=== PATIENT | male | born 1965 | race Caucasian/White ===

== ENCOUNTER 2016-07-31 13:10 | Day surgery (SDC) | payer BC, OTHER ==
[2016-07-30 14:51] VITALS: BMI 37.6
[2016-07-31] VITALS (12 sets, daily range): BP systolic 107–126; BP diastolic 60–81; PULSE 65–81; RESP 18; Ht 185.4 cm; Wt 130.0 kg
[~2016-07-31] VITALS: Ht 185.4 cm; Wt 130.0 kg
[2016-07-31] MEDS ORDERED: CEFAZOLIN 2 GM/50 ML (PMX) 50 ML IVPB ONE (13:30)
[2016-07-31] MEDS ORDERED: SOD CHLORIDE 0.9% 1,000 ML IV SCH (13:30)
[2016-07-31 14:40] LABS: BASOPHILS % 0.5 % (0.0-2.0); EOSINOPHILS # 0.1 10^3/ul (0.0-0.5); HEMATOCRIT 44.6 % (42.0-52.0); LYMPHOCYTES # 1.6 10^3/ul (0.8-2.9); LYMPHOCYTES % 32.7 % (15.0-51.0); MEAN CORPUSCULAR HEMOGLOBIN 29.6 pg (29.0-33.0); MEAN CORPUSCULAR HGB CONC 33.7 g/dl (32.0-37.0); MEAN PLATELET VOLUME 7.8 fl (7.4-10.4); MONOCYTE # 0.5 10^3/ul (0.3-0.9); MONOCYTES % 10.4 % (0.0-11.0); NEUTROPHIL # 2.6 10^3/ul (1.6-7.5); NEUTROPHILS % 53.4 % (39.0-77.0); PLATELET COUNT 209 10^3/UL (140-440); RED BLOOD COUNT 5.07 10^6/ul (4.70-6.10); RED CELL DISTRIBUTION WIDTH 13.1 % (11.5-14.5); UNCORRECTED WBC 4.8 10^3/ul (4.8-10.8); WHITE BLOOD COUNT 4.8 10^3/ul (4.8-10.8)
[2016-07-31 14:45] LABS: CONDITION 1
[2016-07-31 14:50] LABS: INR 0.93; PROTIME 12.5 Sec (12.2-14.2)
[2016-07-31 14:54] LABS: CALCIUM 9.2 mg/dl (8.4-10.2); CREATININE 0.8 mg/dl (0.61-1.24)
[2016-07-31] MEDS ORDERED: MIDAZOLAM 1 MG/ML 2 ML INJ ONE (16:17)
[2016-07-31] MEDS ORDERED: FENTAnyl 50 MCG/ML VIAL ONE (16:17)
[2016-07-31] MEDS ORDERED: CEFAZOLIN 1 GM INJ ONE (16:18)
[2016-07-31] MEDS ORDERED: LIDOCAINE 2% (SDV) 5 ML INJ ONE (16:29)
[2016-07-31] MEDS ORDERED: BUPIVACAINE 0.5% (SDV) 30 ML INJ ONE (16:30)
--- NOTE | 2016-07-31 16:53 | OPR ---
DATE OF OPERATION: 07/31/2016 INDICATION: This is a 50-year-old male with a back mass. He requests surgical excision. Risks, al ternatives, benefits, and personnel were discussed with the patient. Patient expresses understandin g and consents to the operation. PREOPERATIVE DIAGNOSIS: Back mass. POSTOPERATIVE DIAGNOSIS: Back mass. OPERATION PERFORMED: 1. Excision of back mass with 5 cm incision and 5 cm sized mass. 2. Localized adjacent tissue transfer with the use of skin flaps. SURGEON: Zuleyma SPECIMEN: Back mass. COMPLICATIONS: None. ANESTHESIA: General. DESCRIPTION OF PROCEDURE: The patient was taken to the OR and prepped and draped in the usual ster ile fashion. Surgical timeout was performed. IV antibiotics were given. Transverse incision is ma de over the back mass with a 10 blade after infiltration with local anesthesia. Dissection cautery was carried down to the mass and circumferentially excised. There was good hemostasis. Due to tiss ue defect, localized ____ tissue transfer with the use of skin flaps was performed. Multilayer clos ed with interrupted 3-0 Vicryl and skin kristy performed. Dry dressings were applied. ____ Dictated By: ALBINO YANEZ/BROOK Conf#: [id number] DID#: [id number]
[2016-07-31] MEDS ORDERED: HYDROCODONE/APAP (5/325) TAB PO ONE (17:00)
[2016-07-31] MEDS ORDERED: LIDOCAINE 2% (MDV) 20 ML INJ INJ ONE (17:20)
== END 2016-07-31 18:50 | disposition home or self-care (01) ==
LOC: SDS 13:10
PROVIDERS: ATTEND Surgery
DX: L72.0 Epidermal cyst (principal)
CPT/HCPCS: 14000; 80048; 85025; 85610; 85730; 88304; J0690; J2250; J3010; Z7512; Z7610